=== PATIENT | male | born 1990 | race Caucasian/White ===

== ENCOUNTER 2017-05-16 09:51 | Emergency (ER) | payer OTHER ==
[~2017-05-16] VITALS: Ht 175.3 cm; Wt 99.8 kg
[2017-05-16 09:57] VITALS: TEMP 36.9; O2SAT 98; Ht 175.3 cm; Wt 99.8 kg
[2017-05-16] MEDS ORDERED: ACETAMINOPHEN 500 MG TAB PO STA (10:52)
[2017-05-16 11:06] VITALS: BP 138/83; PULSE 79; O2SAT 98
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
== END 2017-05-16 11:07 | disposition home or self-care (01) ==
LOC: EDBD 09:51 → C.EDB 09:52
DX: S00.01XA Abrasion of scalp, initial encounter (principal); V01.00XA Pedestrian on foot injured in collision with pedal cycle in nontraffic accident, initial encounter; F17.200 Nicotine dependence, unspecified, uncomplicated